=== PATIENT | male | born 1985 | race Caucasian/White ===

== ENCOUNTER 2016-07-20 07:39 | Emergency (ER) | payer OTHER ==
--- NOTE | 2016-07-20 09:13 | DIAGNOSTIC IMAGING REPORT ---
PROCEDURE: XR CHEST 2 VIEW INDICATION: CHEST PAIN TECHNIQUE: PA and lateral view. COMPARISON: None. FINDINGS: Lungs are clear. Cardiovascular structures are normal. Bony thorax is unremarkable. IMPRESSION: 1. Negative chest.
--- NOTE | 2016-07-20 09:27 | ED NURSING NOTES ---
Clinical Report - Nurses [facility] [address] [place] [address] 07/20/2016 7:41 Patient: GALILEO SARGENT TRIAGE Triage time 07:48. Acuity: LEVEL 3. Chief Complaint: CHEST PAIN and DISCOMFORT. Alert. No acute distress. TROY COMA SCORE: [place] Coma Scale: 15- eyes open spontaneously (4); best verbal response- oriented x 4 (5); best motor response- obeys commands (6). --07:57 Mindy Hinson R.N. 07:48 07/20/16. BP: 136/74. HR: 82. RR: 14. O2 saturation: 99% on room air. Temp: 98.3 F (oral). Pain level now: 7/10. --07:57 Mindy Hinson R.N. Weight: 113.3 kg stated. Height/Length: 70 inches Per Patient. BMI: 35.8. --07:50 Mindy Hinson R.N. Medications None. --07:49 Mindy Hinson R.N. Medication/allergy information source: the patient. --07:57 Mindy Hinson R.N. Allergies Sulfa Antibiotics. --07:49 Mindy Hinson R.N. History Arrived by private vehicle. Historian: patient. Unaccompanied. Primary physician (none). Onset. ("this morning"). Describes the quality as pressure. Relates location as in the right chest area. Notes pain level as 7/10 on arrival and at maximum. Provoking / relieving factors: worsened by movement. Relieved by nothing. ( right ribs hurt worse when he bends). The patient has had difficulty breathing and nausea. No vomiting. SOCIAL HX: Former smoker. Alcohol use; consumes beer weekly. History of drug use: marijuana. FALL RISK ASSESSMENT: Fall risk assessment completed. No fall risk identified. FUNCTIONAL ASSESSMENT: Functional assessment: no impairments noted. LEARNING NEEDS ASSESSMENT: The learning needs assessment revealed no barriers. --07:57 Mindy Hinson R.N. PROBLEMS: Cellulitis. Contact Dermatitis. Panic Attack. Asthma. Back Pain. --07:50 Mindy Hinson R.N. ADDITIONAL SURGERIES: Hand. --07:50 Mindy Hinson R.N. Assessment GENERAL / NEURO / PSYCH: Alert. Oriented X 4. Appears in no acute distress. Patient appears calm and cooperative. RESPIRATORY: Respirations not labored. SKIN: Skin is warm and dry. --07:57 Mindy Hinson R.N. Interventions ID and allergy band on patient. To treatment room. --07:57 Mindy Hinson R.N. PHYSICAL ASSESSMENT 07:50. Ambulatory to room. Patient gowned. GENERAL / NEURO / PSYCH: Alert. Oriented X 4. Appears in no acute distress. RESPIRATORY: Respirations not labored. SKIN: Skin is warm and dry. --12:41 Mindy Hinson R.N. NURSING PROGRESS NOTES 08:05 07/20/16. environmental marketer, pulse oximeter and NIBP monitor placed on patient. Patient gowned. Call light placed in reach. Side rails up x 1. Bed placed in lowest position. Brakes of bed on. --08:05 Mindy Hinson R.N. 08:26 07/20/16. EKG time: (827). EKG was performed by a magan and shown to the ED physician. --08:27 Silvia Cohn Reassessment after procedure. He is resting quietly. Overall patient status is the same- he states feels the same. RESPIRATORY: No respiratory distress. CVS: Cardiac rhythm: sinus rhythm. SKIN: Skin is warm and dry. --09:00 Mindy Hinson R.N. 09:55. The patient is calm and resting quietly. Overall patient status is the same- he states feels the same. RESPIRATORY: No respiratory distress. SKIN: Skin is warm and dry. --12:40 Mindy Hinson R.N. 08:30 07/20/16. BP: 135/69. HR: 85. RR: 18. O2 saturation: 98%. --12:43 Mindy Hinson R.N. DISPOSITION / DISCHARGE Departure time: 954. Condition at departure: stable. No learning barriers present. Discharge instructions provided and reviewed with the patient. Patient verbalized understanding. Written instructions provided in Vietnamese. The patient was discharged home and unaccompanied at time of discharge. He left the Emergency Department ambulatory and via private vehicle. FALL RISK ASSESSMENT: Fall risk assessment completed. No fall risk identified. --12:40 Mindy Hinson R.N. 09:55 07/20/16. BP: 130/65. HR: 82. RR: 16. O2 saturation: 97%. Temp: 97.9 F. Pain level now: 06/20. --12:40 Mindy Hinson R.N. Reviewed medication(s). Prescription(s) given to the patient. --12:41 Mindy Hinson R.N. Locked/Released at 07/20/2016 12:43 by Mindy Hinson R.N.
--- NOTE | 2016-07-20 09:27 | ED CLINICAL REPORT ---
Clinical Report - Physicians/Mid Levels [facility] [address] [place] [address] 07/20/2016 7:41 Patient: GALILEO SARGENT Time Seen: 08:11. Arrived- By private vehicle. Historian- patient. HISTORY OF PRESENT ILLNESS Chief Complaint: CHEST PAIN. It is described as located in the right chest area. At its maximum, severity described as 7 / 10. When seen in the E.D., severity described as 7 / 10. Modifying factors- worsened by deep breaths. (0610 am today. Bent over and felt a pop.). Is still present. It was abrupt in onset. The patient has had difficulty breathing. Similar symptoms previously: ( Happens one every 7-14 days. Usually lasts a couple of minutes.). REVIEW OF SYSTEMS No fever, chills, cough, pedal edema or calf pain. No double vision, ear pain, sore throat, abdominal pain or black stools. No bloody stools, constipation, diarrhea, nausea or vomiting. No skin rash or difficulty with urination. The patient has had mild lower back pain. He has had joint pain, involving the right knee and left knee. Has had similar previous symptoms of joint pain. PAST HISTORY PCP: None ([employer] insurance) Ops: L ring finger orif Hosp: None Illness: Dyslipidemia. Medications: None. Allergies: Sulfa Antibiotics. SOCIAL HISTORY Former smoker, end date 2014. ADDITIONAL NOTES The nursing notes have been reviewed. PHYSICAL EXAM Vital Signs: 07/20/2016 07:48 BP: 136/74. HR: 82. RR: 14. O2 saturation: 99%. Temp: 98.3 F. Pain level now: 7/10. Appearance: Alert. No acute distress. Eyes: Pupils equal, round and reactive to light. Eyes normal inspection. ENT: Pharynx normal. Neck: Normal inspection. Neck supple. CVS: Normal heart rate and rhythm. Heart sounds normal. Respiratory: No respiratory distress. Chest pain reproducible. Breath sounds normal. Abdomen: Soft and nontender. Bowel sounds normal. Skin: Skin warm. Normal skin color. No rash. Extremities: Extremities exhibit normal ROM. No lower extremity edema. LABS, X-RAYS, AND EKG EKG: Normal EKG. Chest X-ray: Normal Chest X-Ray. (PROCEDURE: XR CHEST 2 VIEW INDICATION: CHEST PAIN TECHNIQUE: PA and lateral view. COMPARISON: None. FINDINGS: Lungs are clear. Cardiovascular structures are normal. Bony thorax is unremarkable. IMPRESSION: 1. Negative chest. Dictated by: ADITYA BLANK MD D: LANPI;07/20/16912 <Electronically signed by ADITYA BLANK MD in OV> 07/20/16912). The X-rays were independently viewed by me and interpreted by the radiologist. PROGRESS AND PROCEDURES Course of Care: This is chest wall pain. He may have injured a costocondral junction or had a nonvisualized rib fracture. Differential Diagnosis: I considered pleurisy, rib fracture, myocardial infarction, unstable angina, pulmonary embolism, pneumonia and pneumothorax as a possible cause of chest pain in this patient. This is a partial list of diagnoses considered. Disposition: Discharged. CLINICAL IMPRESSION Chest wall pain (Probable rib fracture). INSTRUCTIONS (IMMEDIATE RECHECK FOR NEW BAD SYMPTOMS LIKE FEVER, SHORTNESS OF BREATH WORSENING OR CHANGE IN PAIN . YOU WILL LIKELY HAVE SOME PAIN FOR 6 WEEKS.). Prescription Medications: Ibuprofen 600mg tablets: take 1 tablet orally every 8 hours as needed for pain. Dispense thirty (30). No refills. Hydrocodone/APAP 5mg / 325mg: take 1-2 orally every 4 hours as needed for pain. Dispense fifteen (15). No refill. Understanding of the discharge instructions verbalized by patient. Follow-up with: [facility], , , [address], , [place], [id number] Follow up in six if not better. Reason for referral: ESTABLISH PRIMARY CARE. (Electronically signed by Uriel Sanchez MD 07/23/2016 16:20)
--- NOTE | 2016-07-20 09:27 | ED CLINICAL REPORT ---
Clinical Report - Physicians/Mid Levels [facility] [address] [place] [address] 07/20/2016 7:41 Patient: GALILEO SARGENT Time Seen: 08:11. Arrived- By private vehicle. Historian- patient. HISTORY OF PRESENT ILLNESS Chief Complaint: CHEST PAIN. It is described as located in the right chest area. At its maximum, severity described as 7 / 10. When seen in the E.D., severity described as 7 / 10. Modifying factors- worsened by deep breaths. (0610 am today. Bent over and felt a pop.). Is still present. It was abrupt in onset. The patient has had difficulty breathing. Similar symptoms previously: ( Happens one every 7-14 days. Usually lasts a couple of minutes.). REVIEW OF SYSTEMS No fever, chills, cough, pedal edema or calf pain. No double vision, ear pain, sore throat, abdominal pain or black stools. No bloody stools, constipation, diarrhea, nausea or vomiting. No skin rash or difficulty with urination. The patient has had mild lower back pain. He has had joint pain, involving the right knee and left knee. Has had similar previous symptoms of joint pain. PAST HISTORY PCP: None ([employer] insurance) Ops: L ring finger orif Hosp: None Illness: Dyslipidemia. Medications: None. Allergies: Sulfa Antibiotics. SOCIAL HISTORY Former smoker, end date 2014. ADDITIONAL NOTES The nursing notes have been reviewed. PHYSICAL EXAM Vital Signs: 07/20/2016 07:48 BP: 136/74. HR: 82. RR: 14. O2 saturation: 99%. Temp: 98.3 F. Pain level now: 7/10. Appearance: Alert. No acute distress. Eyes: Pupils equal, round and reactive to light. Eyes normal inspection. ENT: Pharynx normal. Neck: Normal inspection. Neck supple. CVS: Normal heart rate and rhythm. Heart sounds normal. Respiratory: No respiratory distress. Chest pain reproducible. Breath sounds normal. Abdomen: Soft and nontender. Bowel sounds normal. Skin: Skin warm. Normal skin color. No rash. Extremities: Extremities exhibit normal ROM. No lower extremity edema. LABS, X-RAYS, AND EKG EKG: Normal EKG. Chest X-ray: Normal Chest X-Ray. (PROCEDURE: XR CHEST 2 VIEW INDICATION: CHEST PAIN TECHNIQUE: PA and lateral view. COMPARISON: None. FINDINGS: Lungs are clear. Cardiovascular structures are normal. Bony thorax is unremarkable. IMPRESSION: 1. Negative chest. Dictated by: ADITYA BLANK MD D: LANPI;07/20/16912 <Electronically signed by ADITYA BLANK MD in OV> 07/20/16912). The X-rays were independently viewed by me and interpreted by the radiologist. PROGRESS AND PROCEDURES Course of Care: This is chest wall pain. He may have injured a costocondral junction or had a nonvisualized rib fracture. Differential Diagnosis: I considered pleurisy, rib fracture, myocardial infarction, unstable angina, pulmonary embolism, pneumonia and pneumothorax as a possible cause of chest pain in this patient. This is a partial list of diagnoses considered. Disposition: Discharged. CLINICAL IMPRESSION Chest wall pain (Probable rib fracture). INSTRUCTIONS (IMMEDIATE RECHECK FOR NEW BAD SYMPTOMS LIKE FEVER, SHORTNESS OF BREATH WORSENING OR CHANGE IN PAIN . YOU WILL LIKELY HAVE SOME PAIN FOR 6 WEEKS.). Prescription Medications: Ibuprofen 600mg tablets: take 1 tablet orally every 8 hours as needed for pain. Dispense thirty (30). No refills. Hydrocodone/APAP 5mg / 325mg: take 1-2 orally every 4 hours as needed for pain. Dispense fifteen (15). No refill. Understanding of the discharge instructions verbalized by patient. Follow-up with: [facility], , , [address], , [place], [address] Follow up in six if not better. Reason for referral: ESTABLISH PRIMARY CARE. (Electronically signed by Uriel Sanchez MD 07/23/2016 16:20)
--- NOTE | 2016-07-20 09:27 | ED NURSING NOTES ---
Clinical Report - Nurses [facility] [address] [place] [address] 07/20/2016 7:41 Patient: GALILEO SARGENT TRIAGE Triage time 07:48. Acuity: LEVEL 3. Chief Complaint: CHEST PAIN and DISCOMFORT. Alert. No acute distress. TROY COMA SCORE: [place] Coma Scale: 15- eyes open spontaneously (4); best verbal response- oriented x 4 (5); best motor response- obeys commands (6). --07:57 Mindy Hinson R.N. 07:48 07/20/16. BP: 136/74. HR: 82. RR: 14. O2 saturation: 99% on room air. Temp: 98.3 F (oral). Pain level now: 7/10. --07:57 Mindy Hinson R.N. Weight: 113.3 kg stated. Height/Length: 70 inches Per Patient. BMI: 35.8. --07:50 Mindy Hinson R.N. Medications None. --07:49 Mindy Hinson R.N. Medication/allergy information source: the patient. --07:57 Mindy Hinson R.N. Allergies Sulfa Antibiotics. --07:49 Mindy Hinson R.N. History Arrived by private vehicle. Historian: patient. Unaccompanied. Primary physician (none). Onset. ("this morning"). Describes the quality as pressure. Relates location as in the right chest area. Notes pain level as 7/10 on arrival and at maximum. Provoking / relieving factors: worsened by movement. Relieved by nothing. ( right ribs hurt worse when he bends). The patient has had difficulty breathing and nausea. No vomiting. SOCIAL HX: Former smoker. Alcohol use; consumes beer weekly. History of drug use: marijuana. FALL RISK ASSESSMENT: Fall risk assessment completed. No fall risk identified. FUNCTIONAL ASSESSMENT: Functional assessment: no impairments noted. LEARNING NEEDS ASSESSMENT: The learning needs assessment revealed no barriers. --07:57 Mindy Hinson R.N. PROBLEMS: Cellulitis. Contact Dermatitis. Panic Attack. Asthma. Back Pain. --07:50 Mindy Hinson R.N. ADDITIONAL SURGERIES: Hand. --07:50 Mindy Hinson R.N. Assessment GENERAL / NEURO / PSYCH: Alert. Oriented X 4. Appears in no acute distress. Patient appears calm and cooperative. RESPIRATORY: Respirations not labored. SKIN: Skin is warm and dry. --07:57 Mindy Hinson R.N. Interventions ID and allergy band on patient. To treatment room. --07:57 Mindy Hinson R.N. PHYSICAL ASSESSMENT 07:50. Ambulatory to room. Patient gowned. GENERAL / NEURO / PSYCH: Alert. Oriented X 4. Appears in no acute distress. RESPIRATORY: Respirations not labored. SKIN: Skin is warm and dry. --12:41 Mindy Hinson R.N. NURSING PROGRESS NOTES 08:05 07/20/16. rehab services aide, pulse oximeter and NIBP monitor placed on patient. Patient gowned. Call light placed in reach. Side rails up x 1. Bed placed in lowest position. Brakes of bed on. --08:05 Mindy Hinson R.N. 08:26 07/20/16. EKG time: (827). EKG was performed by a magan and shown to the ED physician. --08:27 Silvia Cohn Reassessment after procedure. He is resting quietly. Overall patient status is the same- he states feels the same. RESPIRATORY: No respiratory distress. CVS: Cardiac rhythm: sinus rhythm. SKIN: Skin is warm and dry. --09:00 Mindy Hinson R.N. 09:55. The patient is calm and resting quietly. Overall patient status is the same- he states feels the same. RESPIRATORY: No respiratory distress. SKIN: Skin is warm and dry. --12:40 Mindy Hinson R.N. 08:30 07/20/16. BP: 135/69. HR: 85. RR: 18. O2 saturation: 98%. --12:43 Mindy Hinson R.N. DISPOSITION / DISCHARGE Departure time: 954. Condition at departure: stable. No learning barriers present. Discharge instructions provided and reviewed with the patient. Patient verbalized understanding. Written instructions provided in French. The patient was discharged home and unaccompanied at time of discharge. He left the Emergency Department ambulatory and via private vehicle. FALL RISK ASSESSMENT: Fall risk assessment completed. No fall risk identified. --12:40 Mindy Hinson R.N. 09:55 07/20/16. BP: 130/65. HR: 82. RR: 16. O2 saturation: 97%. Temp: 97.9 F. Pain level now: 06/20. --12:40 Mindy Hinson R.N. Reviewed medication(s). Prescription(s) given to the patient. --12:41 Mindy Hinson R.N. Locked/Released at 07/20/2016 12:43 by Mindy Hinson R.N.
--- NOTE | 2016-07-20 09:28 | ED ORDER SUMMARY ---
..... Patient: GALILEO SARGENT OrderSheet [facility] VisitID: [id number] [place] [address] 30y, M Registration Date/Time: 07/20/2016 ORDER SHEET Weight: 113.3 kg (stated) Allergies: Sulfa Antibiotics GENERAL ORDERS: Chest 2V Urgent (08:07/20/2016 Kami MENDOZA) (Ack 8:20 KHoerner) (8:27 KHoerner) EKG - ER Stat (:07/20/2016 Kami MENDOZA) (Ack 8:20 KHoerner) (8:27 KHoerner) MEDICATION ORDERS: IV FLUIDS: ORDER SHEET NOTES: [Electronically signed by Mindy Hinson R.N. (12:43 07/20/2016)] [Electronically signed by Uriel Sanchez MD (16:20 07/23/2016)] [Electronically locked/signed by Mindy Hinson R.N. (12:43 07/20/2016)]
--- NOTE | 2016-07-20 09:28 | ED ORDER SUMMARY ---
..... Patient: GALILEO SARGENT OrderSheet [facility] VisitID: [id number] [place] [address] 30y, M Registration Date/Time: 07/20/2016 ORDER SHEET Weight: 113.3 kg (stated) Allergies: Sulfa Antibiotics GENERAL ORDERS: Chest 2V Urgent (08:07/20/2016 Kami MENDOZA) (Ack 8:20 KHoerner) (8:27 KHoerner) EKG - ER Stat (:07/20/2016 Kami MENDOZA) (Ack 8:20 KHoerner) (8:27 KHoerner) MEDICATION ORDERS: IV FLUIDS: ORDER SHEET NOTES: [Electronically signed by Mindy Hinson R.N. (12:43 07/20/2016)] [Electronically signed by Uriel Sanchez MD (16:20 07/23/2016)] [Electronically locked/signed by Mindy Hinson R.N. (12:43 07/20/2016)]
--- NOTE | 2016-07-23 16:21 | ED DISCHARGE INSTRUCTIONS ---
Patient: GALILEO SARGENT General Instructions [facility] VisitID: [id number] [address] [place] [address] 30y, M Registration Date/Time: 07/20/2016 Chest wall pain (Probable rib fracture). INSTRUCTIONS (IMMEDIATE RECHECK FOR NEW BAD SYMPTOMS LIKE FEVER, SHORTNESS OF BREATH WORSENING OR CHANGE IN PAIN . YOU WILL LIKELY HAVE SOME PAIN FOR 6 WEEKS.). Prescription Medications: Ibuprofen 600mg tablets: take 1 tablet orally every 8 hours as needed for pain. Dispense thirty (30). No refills. Hydrocodone/APAP 5mg / 325mg: take 1-2 orally every 4 hours as needed for pain. Dispense fifteen (15). No refill. Understanding of the discharge instructions verbalized by patient. Follow-up with: [facility], , , [address], , [place], [address] Follow up in six if not better. Reason for referral: ESTABLISH PRIMARY CARE. ADDITIONAL INFORMATION Hydrocodone Bitartrate, Acetaminophen Oral tablet What is this medicine? ACETAMINOPHEN; HYDROCODONE (a set a GRISELDA gurvinder fen; tyrell droe KOE done) is a pain reliever. It is used to treat mild to moderate pain. How should I use this medicine? Take this medicine by mouth. Swallow it with a full glass of water. Follow the directions on the prescription label. If the medicine upsets your stomach, take the medicine with food or milk. Do not take more than you are told to take. Talk to your cotton jammer regarding the use of this medicine in children. This medicine is not approved for use in children. What side effects may I notice from receiving this medicine? Side effects that you should report to your doctor or health healthcare account manager as soon as possible: allergic reactions like skin rash, itching or hives, swelling of the face, lips, or tongue breathing problems confusion feeling faint or lightheaded, falls stomach pain yellowing of the eyes or skin Side effects that usually do not require medical attention (report to your doctor or health healthcare account manager if they continue or are bothersome): nausea, vomiting stomach upset What may interact with this medicine? alcohol antihistamines isoniazid medicines for depression, anxiety, or psychotic disturbances medicines for sleep muscle relaxants naltrexone narcotic medicines (opiates) for pain phenobarbital ritonavir tramadol What if I miss a dose? If you miss a dose, take it as soon as you can. If it is almost time for your next dose, take only that dose. Do not take double or extra doses. Where should I keep my medicine? Keep out of the reach of children. This medicine can be abused. Keep your medicine in a safe place to protect it from theft. Do not share this medicine with anyone. Selling or giving away this medicine is dangerous and against the law. Store at room temperature between 15 and 30 degrees C (59 and 86 degrees F). Protect from light. Keep container tightly closed. Throw away any unused medicine after the expiration date. Discard unused medicine and used packaging carefully. Pets and children can be harmed if they find used or lost packages. What should I tell my health care provider before I take this medicine? They need to know if you have any of these conditions: brain tumor Crohn's disease, inflammatory bowel disease, or ulcerative colitis drink more than 3 alcohol-containing drinks per day drug abuse or addiction head injury heart or circulation problems kidney disease or problems going to the bathroom liver disease lung disease, asthma, or breathing problems an unusual or allergic reaction to acetaminophen, hydrocodone, other opioid analgesics, other medicines, foods, dyes, or preservatives or trying to get breast-feeding What should I watch for while using this medicine? Tell your doctor or health healthcare account manager if your pain does not go away, if it gets worse, or if you have new or a different type of pain. You may develop tolerance to the medicine. Tolerance means that you will need a higher dose of the medicine for pain relief. Tolerance is normal and is expected if you take the medicine for a long time. Do not suddenly stop taking your medicine because you may develop a severe reaction. Your body becomes used to the medicine. This does NOT mean you are addicted. Addiction is a behavior related to getting and using a drug for a non-medical reason. If you have pain, you have a medical reason to take pain medicine. Your doctor will tell you how much medicine to take. If your doctor wants you to stop the medicine, the dose will be slowly lowered over time to avoid any side effects. You may get drowsy or dizzy when you first start taking the medicine or change doses. Do not drive, use machinery, or do anything that may be dangerous until you know how the medicine affects you. Stand or sit up slowly. There are different types of narcotic medicines (opiates) for pain. If you take more than one type at the same time, you may have more side effects. Give your health care provider a list of all medicines you use. Your doctor will tell you how much medicine to take. Do not take more medicine than directed. Call emergency for help if you have problems breathing. The medicine will cause constipation. Try to have a bowel movement at least every 2 to 3 days. If you do not have a bowel movement for 3 days, call your doctor or health healthcare account manager. Too much acetaminophen can be very dangerous. Do not take Tylenol (acetaminophen) or medicines that contain acetaminophen with this medicine. Many non-prescription medicines contain acetaminophen. Always read the labels carefully. You have been given the following additional information: Hydrocodone Bitartrate, Acetaminophen Oral tablet (Electronically signed by Uriel Sanchez MD 07/23/2016 16:20)
--- NOTE | 2016-07-23 16:21 | ED MAR SUMMARY ---
..... Medication Administration Record [facility] [address], [place] [id number] Patient: GALILEO SARGENT Visit ID: [id number] 30y, M Weight: 113.3 kg Height/Length: 70 in BMI: 35.8 ALLERGIES: Sulfa Antibiotics
--- NOTE | 2016-07-23 16:21 | ED MAR SUMMARY ---
..... Medication Administration Record [facility] [address] [place], [place] [id number] Patient: GALILEO SARGENT Visit ID: [id number] 30y, M Weight: 113.3 kg Height/Length: 70 in BMI: 35.8 ALLERGIES: Sulfa Antibiotics
--- NOTE | 2016-07-23 16:21 | ED MED RECONCILIATION SUMMARY ---
Patient: GALILEO SARGENT Medication Reconciliation Report [facility] VisitID: [id number] [place] [address] 30y, M Registration Date/Time: 07/20/2016 Weight: 113.3 kg Height/Length: 70 in. BMI: 35.8 ALLERGIES: Sulfa Antibiotics The patient's Home Medications are listed below: NONE. The source(s) of the original Home Medication information: patient The following Medications were given to the patient in the Emergency Department: None. The following Medications were prescribed to the patient: Ibuprofen 600mg tablets: take 1 tablet orally every 8 hours as needed for pain. Dispense thirty (30). No refills. -- Uriel Sanchez MD Hydrocodone/APAP 5mg / 325mg: take 1-2 orally every 4 hours as needed for pain. Dispense fifteen (15). No refill. -- Uriel Sanchez MD
--- NOTE | 2016-07-23 16:21 | ED MED RECONCILIATION SUMMARY ---
Patient: GALILEO SARGENT Medication Reconciliation Report Located Within [facility] VisitID: [id number] [place] [address] 30y, M Registration Date/Time: 07/20/2016 Weight: 113.3 kg Height/Length: 70 in. BMI: 35.8 ALLERGIES: Sulfa Antibiotics The patient's Home Medications are listed below: NONE. The source(s) of the original Home Medication information: patient The following Medications were given to the patient in the Emergency Department: None. The following Medications were prescribed to the patient: Ibuprofen 600mg tablets: take 1 tablet orally every 8 hours as needed for pain. Dispense thirty (30). No refills. -- Uriel Sanchez MD Hydrocodone/APAP 5mg / 325mg: take 1-2 orally every 4 hours as needed for pain. Dispense fifteen (15). No refill. -- Uriel Sanchez MD
--- NOTE | 2016-07-23 16:21 | ED DISCHARGE INSTRUCTIONS ---
Patient: GALILEO SARGENT General Instructions [facility] VisitID: [id number] [address] [place] [address] 30y, M Registration Date/Time: 07/20/2016 Chest wall pain (Probable rib fracture). INSTRUCTIONS (IMMEDIATE RECHECK FOR NEW BAD SYMPTOMS LIKE FEVER, SHORTNESS OF BREATH WORSENING OR CHANGE IN PAIN . YOU WILL LIKELY HAVE SOME PAIN FOR 6 WEEKS.). Prescription Medications: Ibuprofen 600mg tablets: take 1 tablet orally every 8 hours as needed for pain. Dispense thirty (30). No refills. Hydrocodone/APAP 5mg / 325mg: take 1-2 orally every 4 hours as needed for pain. Dispense fifteen (15). No refill. Understanding of the discharge instructions verbalized by patient. Follow-up with: [facility], , , [address], , [place], [address] Follow up in six if not better. Reason for referral: ESTABLISH PRIMARY CARE. ADDITIONAL INFORMATION Hydrocodone Bitartrate, Acetaminophen Oral tablet What is this medicine? ACETAMINOPHEN; HYDROCODONE (a set a GRISELDA gurvinder fen; tyrell droe KOE done) is a pain reliever. It is used to treat mild to moderate pain. How should I use this medicine? Take this medicine by mouth. Swallow it with a full glass of water. Follow the directions on the prescription label. If the medicine upsets your stomach, take the medicine with food or milk. Do not take more than you are told to take. Talk to your registered representative regarding the use of this medicine in children. This medicine is not approved for use in children. What side effects may I notice from receiving this medicine? Side effects that you should report to your doctor or health healthcare administration intern as soon as possible: allergic reactions like skin rash, itching or hives, swelling of the face, lips, or tongue breathing problems confusion feeling faint or lightheaded, falls stomach pain yellowing of the eyes or skin Side effects that usually do not require medical attention (report to your doctor or health healthcare administration intern if they continue or are bothersome): nausea, vomiting stomach upset What may interact with this medicine? alcohol antihistamines isoniazid medicines for depression, anxiety, or psychotic disturbances medicines for sleep muscle relaxants naltrexone narcotic medicines (opiates) for pain phenobarbital ritonavir tramadol What if I miss a dose? If you miss a dose, take it as soon as you can. If it is almost time for your next dose, take only that dose. Do not take double or extra doses. Where should I keep my medicine? Keep out of the reach of children. This medicine can be abused. Keep your medicine in a safe place to protect it from theft. Do not share this medicine with anyone. Selling or giving away this medicine is dangerous and against the law. Store at room temperature between 15 and 30 degrees C (59 and 86 degrees F). Protect from light. Keep container tightly closed. Throw away any unused medicine after the expiration date. Discard unused medicine and used packaging carefully. Pets and children can be harmed if they find used or lost packages. What should I tell my health care provider before I take this medicine? They need to know if you have any of these conditions: brain tumor Crohn's disease, inflammatory bowel disease, or ulcerative colitis drink more than 3 alcohol-containing drinks per day drug abuse or addiction head injury heart or circulation problems kidney disease or problems going to the bathroom liver disease lung disease, asthma, or breathing problems an unusual or allergic reaction to acetaminophen, hydrocodone, other opioid analgesics, other medicines, foods, dyes, or preservatives or trying to get breast-feeding What should I watch for while using this medicine? Tell your doctor or health healthcare administration intern if your pain does not go away, if it gets worse, or if you have new or a different type of pain. You may develop tolerance to the medicine. Tolerance means that you will need a higher dose of the medicine for pain relief. Tolerance is normal and is expected if you take the medicine for a long time. Do not suddenly stop taking your medicine because you may develop a severe reaction. Your body becomes used to the medicine. This does NOT mean you are addicted. Addiction is a behavior related to getting and using a drug for a non-medical reason. If you have pain, you have a medical reason to take pain medicine. Your doctor will tell you how much medicine to take. If your doctor wants you to stop the medicine, the dose will be slowly lowered over time to avoid any side effects. You may get drowsy or dizzy when you first start taking the medicine or change doses. Do not drive, use machinery, or do anything that may be dangerous until you know how the medicine affects you. Stand or sit up slowly. There are different types of narcotic medicines (opiates) for pain. If you take more than one type at the same time, you may have more side effects. Give your health care provider a list of all medicines you use. Your doctor will tell you how much medicine to take. Do not take more medicine than directed. Call emergency for help if you have problems breathing. The medicine will cause constipation. Try to have a bowel movement at least every 2 to 3 days. If you do not have a bowel movement for 3 days, call your doctor or health healthcare administration intern. Too much acetaminophen can be very dangerous. Do not take Tylenol (acetaminophen) or medicines that contain acetaminophen with this medicine. Many non-prescription medicines contain acetaminophen. Always read the labels carefully. You have been given the following additional information: Hydrocodone Bitartrate, Acetaminophen Oral tablet (Electronically signed by Uriel Sanchez MD 07/23/2016 16:20)
== END 2016-07-20 09:55 | disposition home or self-care (01) ==
LOC: ED SRH 07:39
DX: R07.89 Other chest pain (principal); Z87.891 Personal history of nicotine dependence; Z88.2 Allergy status to sulfonamides